=== PATIENT | female | born 1940 | race Asian ===

== ENCOUNTER 2016-03-10 10:41 | Outpatient (CLI) | payer OTHER ==
[~2016-03-10 10:41] MED LIST: AMOX500T5 PO; ASPIRIN325 M1 PO; DIAZEPAM 5 MG/ML PR; LORA0.5T17 PO; LOSA50TA PO; METO5TAB16 PO; RANI150T78 PO; REMERON30 MG PO; SENNA-PLUS1 TAB PO; SODI650T PO
[2016-03-10 11:16] LABS: PLATELET COUNT 271 K/uL (152-353)
== END 2016-03-10 21:28 | disposition home or self-care (01) ==
LOC: LABW 10:41
PROVIDERS: Internal Medicine Nephrology
DX: N18.5 Chronic kidney disease, stage 5 (principal); D63.1 Anemia in chronic kidney disease
CPT/HCPCS: 36416; 85007; 85027

== ENCOUNTER 2016-04-01 10:22 | Outpatient (CLI) | payer OTHER ==
[2016-04-01 10:34] LABS: PLATELET COUNT 259 K/uL (152-353)
== END 2016-04-01 11:22 | disposition home or self-care (01) ==
LOC: LABW 10:22
PROVIDERS: Internal Medicine Nephrology
DX: N18.5 Chronic kidney disease, stage 5 (principal); D63.1 Anemia in chronic kidney disease
CPT/HCPCS: 36416; 85027

== ENCOUNTER 2016-04-25 10:05 | Outpatient (CLI) | payer OTHER ==
[2016-04-25 11:04] LABS: PLATELET COUNT 329 K/uL (152-353)
== END 2016-04-26 01:59 | disposition home or self-care (01) ==
LOC: LABW 10:05
PROVIDERS: Internal Medicine Nephrology
DX: N18.5 Chronic kidney disease, stage 5 (principal); D64.89 Other specified anemias; N25.0 Renal osteodystrophy
CPT/HCPCS: 36415; 80053; 81000; 82570; 82728; 82747; 83540; 83970; 84100; 84155; 85027

== ENCOUNTER 2016-04-27 09:55 | Outpatient (CLI) | payer OTHER | END 2016-04-27 22:50 | disposition home or self-care (01) | LOC: LABW 09:55 | DX: N18.5 Chronic kidney disease, stage 5 (principal); N25.0 Renal osteodystrophy | CPT/HCPCS: 36415; 82306; 82607; 83550 ==

== ENCOUNTER → 2016-05-12 10:37 | Outpatient (CLI) | payer OTHER ==
[~2016-05-12 10:37] MED LIST changes: +AMLO2.5T PO; +BISACODYL5 M1 PO; +FURO40TA93 PO; +WARF3TAB12 PO
[2016-05-12 11:16] LABS: PLATELET COUNT 276 K/uL (152-353)
== END | disposition home or self-care (01) ==
LOC: LABW 10:37
PROVIDERS: Internal Medicine Nephrology
DX: N18.5 Chronic kidney disease, stage 5 (principal); D63.1 Anemia in chronic kidney disease
CPT/HCPCS: 36415; 85027

== ENCOUNTER 2016-05-26 10:08 | Outpatient (CLI) | payer OTHER ==
[~2016-05-26] VITALS: Ht 160 cm; Wt 70.3 kg
[~2016-05-26 10:08] MED LIST changes: -AMLO2.5T PO; -BISACODYL5 M1 PO; -FURO40TA93 PO; -WARF3TAB12 PO
[2016-05-26 10:30] VITALS: BP 136/66; TEMP 98.3
[2016-05-26 11:05] LABS: PLATELET COUNT 236 K/uL (152-353)
[2016-05-26 11:36] VITALS: BP 133/70
== END 2016-05-26 19:48 | disposition home or self-care (01) ==
LOC: INF 10:08 → LABW 10:08 → LAB 10:08 → INF 19:48
PROVIDERS: Internal Medicine Nephrology
DX: N18.5 Chronic kidney disease, stage 5 (principal); D63.1 Anemia in chronic kidney disease
CPT/HCPCS: 36416; 85027; 96372; J0885

== ENCOUNTER 2016-07-19 11:00 | Outpatient (CLI) | payer OTHER | END 2016-07-19 12:30 | disposition home or self-care (01) | LOC: RAD 11:00 | DX: K59.01 Slow transit constipation (principal) ==

== ENCOUNTER 2016-07-22 10:21 | Outpatient (CLI) | payer OTHER ==
[2016-07-22 11:25] LABS: PLATELET COUNT 299 K/uL (152-353)
[2016-07-22 11:48] LABS: POTASSIUM 4.3 mmol/L (3.6-5.2)
== END 2016-07-22 19:03 | disposition home or self-care (01) ==
LOC: LABW 10:21
PROVIDERS: Internal Medicine Nephrology
DX: N18.5 Chronic kidney disease, stage 5 (principal); N25.0 Renal osteodystrophy
CPT/HCPCS: 36415; 80053; 81000; 82570; 82607; 82652; 82728; 82747; 83540; 83970; 84100; 84155; 85027

== ENCOUNTER 2016-08-09 09:39 | Outpatient (CLI) | payer OTHER ==
[2016-08-09 10:13] LABS: PLATELET COUNT 264 K/uL (152-353); POTASSIUM 4.2 mmol/L (3.6-5.2)
== END 2016-08-09 10:40 | disposition home or self-care (01) ==
LOC: LABW 09:39
PROVIDERS: Internal Medicine Nephrology
DX: N18.5 Chronic kidney disease, stage 5 (principal); D63.1 Anemia in chronic kidney disease; D64.89 Other specified anemias
CPT/HCPCS: 36415; 80048; 84100; 85027

== ENCOUNTER 2016-08-20 22:20 | Emergency (ER) | payer OTHER ==
[~2016-08-20] VITALS: Ht 160 cm; Wt 65.8 kg
[2016-08-20] MEDS ORDERED: FURO40TA93 PO (22:48)
[2016-08-20] MEDS ORDERED: WARF3TAB12 PO (22:49)
[2016-08-20] MEDS ORDERED: AMLO2.5T PO (22:49)
[2016-08-20] MEDS ORDERED: BISACODYL5 M1 PO (22:49)
[2016-08-20 23:02] LABS: PLATELET COUNT 153 K/uL (152-353)
[2016-08-20 23:19] LABS: POTASSIUM 4.9 mmol/L (3.6-5.2)
[2016-08-20 23:56] VITALS: BP 176/90; TEMP 98.2
== END 2016-08-21 00:08 | disposition home or self-care (01) ==
LOC: ED 22:20
DX: R19.03 Right lower quadrant abdominal swelling, mass and lump (principal); N18.9 Chronic kidney disease, unspecified; I69.351 Hemiplegia and hemiparesis following cerebral infarction affecting right dominant side
CPT/HCPCS: 36415; 80053; 85027; 96372; 99283; J2175

== ENCOUNTER 2016-08-26 09:11 | Outpatient (CLI) | payer OTHER ==
[~2016-08-26 09:11] MED LIST changes: +AMLO2.5T PO; +BISACODYL5 M1 PO; +FURO40TA93 PO; +WARF3TAB12 PO
[2016-08-26 09:37] LABS: PLATELET COUNT 276 K/uL (152-353)
[2016-08-26 09:49] LABS: POTASSIUM 4.7 mmol/L (3.6-5.2)
== END 2016-08-26 19:05 | disposition home or self-care (01) ==
LOC: LABW 09:11
PROVIDERS: Internal Medicine Nephrology
DX: N18.5 Chronic kidney disease, stage 5 (principal); D63.1 Anemia in chronic kidney disease
CPT/HCPCS: 36415; 80048; 84100; 85027

== ENCOUNTER 2016-09-14 09:39 | Outpatient (CLI) | payer OTHER ==
[2016-09-14 10:27] LABS: PLATELET COUNT 299 K/uL (152-353)
[2016-09-14 11:25] LABS: POTASSIUM 4.3 mmol/L (3.6-5.2)
== END 2016-09-14 19:12 | disposition home or self-care (01) ==
LOC: LABW 09:39
PROVIDERS: Internal Medicine Nephrology
DX: N18.5 Chronic kidney disease, stage 5 (principal); D64.89 Other specified anemias; N25.0 Renal osteodystrophy
CPT/HCPCS: 36415; 80053; 81000; 82570; 82607; 82652; 82728; 82747; 83540; 83550; 83970; 84100; 84155; 85027

== ENCOUNTER 2016-12-01 11:33 | Outpatient (CLI) | payer OTHER | END 2016-12-01 19:24 | disposition home or self-care (01) | LOC: RAD 11:33 | DX: M25.561 Pain in right knee (principal) ==

== ENCOUNTER 2017-01-24 09:03 | Outpatient (CLI) | payer OTHER ==
[2017-01-24 10:13] LABS: PLATELET COUNT 264 K/uL (152-353)
[2017-01-24 10:41] LABS: POTASSIUM 4.7 mmol/L (3.6-5.2)
== END 2017-01-24 19:08 | disposition home or self-care (01) ==
LOC: LABW 09:03
PROVIDERS: Internal Medicine Nephrology
DX: N18.5 Chronic kidney disease, stage 5 (principal); D64.89 Other specified anemias; N25.0 Renal osteodystrophy
CPT/HCPCS: 36415; 80053; 82728; 83970; 84100; 85027

== ENCOUNTER 2017-03-03 08:57 | Outpatient (CLI) | payer OTHER ==
[2017-03-03 09:52] LABS: PLATELET COUNT 317 K/uL (152-353)
[2017-03-03 10:17] LABS: POTASSIUM 4.6 mmol/L (3.6-5.2)
== END 2017-03-04 05:17 | disposition home or self-care (01) ==
LOC: LABW 08:57
PROVIDERS: Internal Medicine Nephrology
DX: N18.5 Chronic kidney disease, stage 5 (principal); N64.89 Other specified disorders of breast; N25.0 Renal osteodystrophy
CPT/HCPCS: 36415; 80053; 81000; 82043; 82570; 82607; 82652; 82728; 82747; 83540; 83550; 83970; 84100; 85027

== ENCOUNTER 2017-07-13 12:58 | Outpatient (CLI) | payer OTHER | END 2017-07-13 23:35 | disposition home or self-care (01) | LOC: CT 12:58 | DX: R10.84 Generalized abdominal pain (principal) ==

== ENCOUNTER 2017-09-01 10:27 | Outpatient (CLI) | payer OTHER | END 2017-09-01 19:11 | disposition home or self-care (01) | LOC: RAD 10:27 | DX: M79.604 Pain in right leg (principal) ==

== ENCOUNTER 2018-02-12 15:17 | Emergency (ER) | payer OTHER ==
[~2018-02-12] VITALS: Ht 160 cm; Wt 70.3 kg
[2018-02-12 17:15] LABS: PLATELET COUNT 258 K/uL (152-353)
[2018-02-12 17:40] LABS: POTASSIUM 4.2 mmol/L (3.6-5.2); SODIUM 139 mmol/L (136-145)
[2018-02-12 19:02] VITALS: BP 123/70; TEMP 97.3
== END 2018-02-12 19:06 | disposition home or self-care (01) ==
LOC: ED 15:17
DX: K59.09 Other constipation (principal); N18.9 Chronic kidney disease, unspecified; N28.1 Cyst of kidney, acquired; Z86.73 Personal history of transient ischemic attack (TIA), and cerebral infarction without residual deficits; R00.0 Tachycardia, unspecified
CPT/HCPCS: 36415; 80053; 82150; 82550; 82553; 83690; 84484; 85027; 93005; 99283

== ENCOUNTER 2018-05-15 14:06 | Outpatient (CLI) | payer OTHER | END 2018-05-15 22:54 | disposition home or self-care (01) | LOC: LAB 14:06 | DX: Z79.01 Long term (current) use of anticoagulants (principal) | CPT/HCPCS: 85610 ==

== ENCOUNTER 2018-11-26 14:40 | Outpatient (CLI) | payer OTHER | END 2018-11-26 19:41 | disposition home or self-care (01) | LOC: RAD 14:40 | DX: M81.0 Age-related osteoporosis without current pathological fracture (principal) ==

== ENCOUNTER 2019-01-30 13:25 | Emergency (ER) | payer OTHER ==
[~2019-01-30] VITALS: Ht 160 cm; Wt 70.3 kg
[2019-01-30 13:29] VITALS: BP 170/81; TEMP 97.7
[2019-01-30 15:04] LABS: PLATELET COUNT 331 K/uL (152-353)
[2019-01-30 15:11] LABS: POTASSIUM 4.6 mmol/L (3.6-5.2)
== END 2019-01-30 16:31 | disposition home or self-care (01) ==
LOC: ED 13:25
PROVIDERS: Emergency Medicine
DX: M62.830 Muscle spasm of back (principal); N28.1 Cyst of kidney, acquired
CPT/HCPCS: 80053; 81000; 85027; 96374; 99283; 99284; J1885

== ENCOUNTER 2020-01-29 08:30 | Outpatient (CLI) | payer OTHER | END 2020-01-29 19:29 | disposition home or self-care (01) | LOC: RAD 08:30 | PROVIDERS: ATTEND Nurse Practitioner Family | DX: M25.551 Pain in right hip (principal) ==

== ENCOUNTER → 2020-04-08 08:33 | Outpatient (CLI) | payer OTHER | END | disposition home or self-care (01) | LOC: LABW 08:33 | PROVIDERS: ATTEND Internal Medicine Rheumatology | DX: M06.4 Inflammatory polyarthropathy (principal); M17.0 Bilateral primary osteoarthritis of knee | CPT/HCPCS: 36415; 83516; 84550; 85652; 86038; 86140; 86200; 86225; 86235; 86430 ==

== ENCOUNTER 2020-08-13 09:45 | Outpatient (CLI) | payer OTHER | END 2020-08-13 23:55 | disposition home or self-care (01) | LOC: RAD 09:45 | PROVIDERS: ATTEND Nurse Practitioner Family | DX: K59.04 Chronic idiopathic constipation (principal) ==

== ENCOUNTER 2020-08-16 16:10 | Emergency (ER) | payer OTHER ==
[2020-08-29 21:31] LABS: PLATELET COUNT 264 K/uL (152-353)
[2020-08-29 21:32] LABS: PARTIAL THROMBOPLASTIN TIME 31.6 SECONDS (24.5-33.6)
[2020-08-29 22:00] LABS: POTASSIUM 4.1 mmol/L (3.6-5.2); SODIUM 133 mmol/L (136-145)
== END 2020-08-16 21:10 | disposition short-term general hospital (02) ==
LOC: ED 16:10
PROVIDERS: Hospitalist
PROC: 0T9B70Z Drainage of Bladder with Drainage Device, Via Natural or Artificial Opening (ICD-10-PCS; principal; 2020-08-16)
DX: R10.84 Generalized abdominal pain (principal); N17.8 Other acute kidney failure; E11.65 Type 2 diabetes mellitus with hyperglycemia
CPT/HCPCS: 36415; 51702; 80053; 81000; 82150; 82550; 82553; 83690; 84484; 85027; 85610; 85730; 93005; 96360; 96375; 99284; J1815; J1885; J2405

== ENCOUNTER 2020-08-28 13:59 | Emergency (ER) | payer OTHER ==
[~2020-08-28] VITALS: Ht 160 cm; Wt 68.0 kg
[2020-08-28 14:53] LABS: PLATELET COUNT 267 K/uL (152-353)
[2020-08-28 15:11] LABS: POTASSIUM 3.1 mmol/L (3.6-5.2)
[2020-08-28 16:00] VITALS: BP 106/57; TEMP 99.1
== END 2020-08-28 16:00 | disposition home or self-care (01) ==
LOC: ED 13:59
PROVIDERS: Family Medicine
DX: E11.43 Type 2 diabetes mellitus with diabetic autonomic (poly)neuropathy (principal); K31.84 Gastroparesis; R11.0 Nausea; K59.09 Other constipation
CPT/HCPCS: 80053; 85027; 99283

== ENCOUNTER 2020-09-02 09:06 | Emergency (ER) | payer OTHER ==
[~2020-09-02] VITALS: Ht 160 cm; Wt 68.0 kg
[2020-09-02 09:13] VITALS: BP 129/100; TEMP 97.7
[2020-09-09] MEDS ORDERED: METOCLOPRAM10 MG PO (17:21)
[2020-09-09] MEDS ORDERED: GENERLAC10 GM/15 M PO (17:22)
[2020-09-09] MEDS ORDERED: LIPITOR40 MG PO (17:22)
[2020-09-09] MEDS ORDERED: CALCITRIOL0.25 MCG PO (17:24)
[2020-09-09] MEDS ORDERED: ONDANSETRON4 M2 SL (17:25)
[2020-09-09] MEDS ORDERED: AMLODIPINE BESYLATE PO (17:27)
== END 2020-09-02 12:35 | disposition home or self-care (01) ==
LOC: ED 09:06
DX: K59.09 Other constipation (principal); N18.6 End stage renal disease; Z99.2 Dependence on renal dialysis
CPT/HCPCS: 93005; 99283; J1885; J2405

== ENCOUNTER 2020-09-14 18:07 | Outpatient (CLI) | payer OTHER ==
[~2020-09-14 18:07] MED LIST changes: +AMLODIPINE BESYLATE PO; +CALCITRIOL0.25 MCG PO; +GENERLAC10 GM/15 M PO; +LIPITOR40 MG PO; +METOCLOPRAM10 MG PO; +ONDANSETRON4 M2 SL
[2020-09-14 19:27] LABS: PLATELET COUNT 328 K/uL (152-353)
[2020-09-14 21:03] LABS: POTASSIUM 3.4 mmol/L (3.6-5.2)
== END 2020-09-14 19:59 | disposition home or self-care (01) ==
LOC: LAB 18:07
PROVIDERS: ATTEND Nurse Practitioner Family
DX: K31.84 Gastroparesis (principal); R10.9 Unspecified abdominal pain
CPT/HCPCS: 80053; 82150; 83690; 85027; 85610

== ENCOUNTER 2020-11-02 09:38 | Emergency (ER) | payer OTHER | END 2020-11-02 10:13 | disposition home or self-care (01) | LOC: ED 09:38 | DX: Z53.21 Procedure and treatment not carried out due to patient leaving prior to being seen by health care provider (principal) | CPT/HCPCS: 99281 ==

== ENCOUNTER 2020-11-03 08:10 | Emergency (ER) | payer OTHER ==
[~2020-11-03] VITALS: Ht 160 cm; Wt 66.7 kg
[2020-11-03 08:17] VITALS: TEMP 96.9
[2020-11-03 09:14] LABS: PLATELET COUNT 271 K/uL (152-353)
[2020-11-03 09:27] LABS: POTASSIUM 3.1 mmol/L (3.6-5.2)
[2020-11-03 12:17] VITALS: BP 130/66
== END 2020-11-03 12:55 | disposition home or self-care (01) ==
LOC: ED 08:10
PROVIDERS: Emergency Medicine Emergency Medical Services
DX: K59.09 Other constipation (principal)
CPT/HCPCS: 36415; 80053; 82272; 83690; 85027; 96360; 96375; 99284; J2405

== ENCOUNTER 2020-12-15 18:29 | Emergency (ER) | payer OTHER ==
[~2020-12-15] VITALS: Ht 160 cm; Wt 56.7 kg
[2020-12-15 21:53] VITALS: BP 120/62; TEMP 98.7
== END 2020-12-15 21:53 | disposition home or self-care (01) ==
LOC: ED 18:29
DX: K59.09 Other constipation (principal); R19.09 Other intra-abdominal and pelvic swelling, mass and lump
CPT/HCPCS: 99283

== ENCOUNTER 2021-01-10 23:22 | Emergency (ER) | payer OTHER ==
[~2021-01-10] VITALS: Ht 160 cm; Wt 56.7 kg
[2021-01-11 01:02] LABS: PLATELET COUNT 241 K/uL (152-353)
[2021-01-11 01:15] LABS: POTASSIUM 3.7 mmol/L (3.6-5.2)
[2021-01-11 01:55] VITALS: BP 114/72; TEMP 98.2
== END 2021-01-11 01:55 | disposition home or self-care (01) ==
LOC: ED 23:22
PROVIDERS: Hospitalist
DX: K59.09 Other constipation (principal); N18.6 End stage renal disease; Z99.2 Dependence on renal dialysis
CPT/HCPCS: 36415; 80053; 83690; 85027; 85610; 99283

== ENCOUNTER 2021-01-28 19:03 | Emergency (ER) | payer OTHER ==
[~2021-01-28] VITALS: Ht 160 cm; Wt 56.7 kg
[2021-01-28 23:37] VITALS: BP 110/60; TEMP 98.8
== END 2021-01-28 23:37 | disposition home or self-care (01) ==
LOC: ED 19:03
DX: K59.09 Other constipation (principal); N18.6 End stage renal disease; Z99.2 Dependence on renal dialysis
CPT/HCPCS: 99284

== ENCOUNTER → 2021-02-17 | Emergency (ER) | payer OTHER ==
[~2021-02-17] VITALS: Ht 160 cm; Wt 63.5 kg
[2021-02-17 14:14] VITALS: BP 109/59; TEMP 98.7
[2021-02-17 17:27] LABS: PLATELET COUNT 232 K/uL (152-353)
== END ==
LOC: ED 14:07
PROVIDERS: Emergency Medicine Emergency Medical Services
DX: R10.84 Generalized abdominal pain (principal); K59.09 Other constipation
CPT/HCPCS: 80048; 85027; 99283

== ENCOUNTER 2021-05-02 18:26 | Emergency (ER) | payer OTHER ==
[~2021-05-02] VITALS: Ht 160 cm; Wt 63.5 kg
[2021-05-02 19:35] LABS: POTASSIUM 3.2 mmol/L (3.6-5.2)
[2021-05-02 19:40] LABS: PLATELET COUNT 456 K/uL (152-353)
[2021-05-03 00:02] VITALS: BP 137/57; TEMP 98.4
== END 2021-05-03 00:02 | disposition home or self-care (01) ==
LOC: ED 18:26
PROVIDERS: Emergency Medicine
DX: U07.1 COVID-19 (principal); J12.82 Pneumonia due to coronavirus disease 2019; Z53.29 Procedure and treatment not carried out because of patient's decision for other reasons; Z93.3 Colostomy status
CPT/HCPCS: 36415; 80053; 83605; 83690; 84484; 85007; 85027; 85379; 85385; 87040; 87635; 93005; 96365; 96366; 96375; 99284; J1100; J1956; J2270; J2405; J2543; Q9963; U0003